=== PATIENT | male | born 1960 | race Caucasian/White ===

== ENCOUNTER 2023-09-30 16:07 | Outpatient (CLI) | payer BC | END 2023-09-30 16:08 | disposition home or self-care (01) | LOC: CSHRAD 16:07 | PROVIDERS: ATTEND Nurse Practitioner Family | DX: M79.641 Pain in right hand (principal); M25.531 Pain in right wrist; S62.001A Unspecified fracture of navicular [scaphoid] bone of right wrist, initial encounter for closed fracture; M79.89 Other specified soft tissue disorders ==